=== PATIENT | male | born 1980 | race Two or more races ===

== ENCOUNTER 2019-10-03 20:55 | Emergency (ER) | payer OTHER ==
[~2019-10-03] VITALS: Ht 172.7 cm; Wt 65.8 kg
--- NOTE | 2019-10-03 21:36 | NUR ---
An READ PA-C IS AT THE BEDSIDE EVALUATING THE PT.
[2019-10-03] MEDS ORDERED: CEPHALEXIN MONOHYDRATE 500 MG CAPSULE PO ONE ×2 (21:54→22:00)
[2019-10-03] MEDS ORDERED: IBUPROFEN 600 MG TABLET PO ONE ×2 (21:55→22:00)
[2019-10-03 22:01] VITALS: BP 126/80
== END 2019-10-03 22:02 | disposition home or self-care (01) ==
LOC: ER 20:55
DX: L03.116 Cellulitis of left lower limb (principal); B35.1 Tinea unguium; F17.200 Nicotine dependence, unspecified, uncomplicated

== ENCOUNTER 2020-11-06 15:00 | Emergency (ER) | payer OTHER ==
[~2020-11-06] VITALS: Ht 170.2 cm; Wt 70.3 kg
[2020-11-06 15:09] VITALS: BP 130/85
[2020-11-06] MEDS ORDERED: KETOROLAC TROMETHAMINE INJ 30 MG/ML VIAL ONE (15:30)
[2020-11-06] MEDS: KETOROLAC TROMETHAMINE INJ 30 MG/ML VIAL IM ONE (15:35)
[2020-11-06] MEDS ORDERED: [UNRECOGNIZED DRUG - CODE] MC (15:48)
[2020-11-06] MEDS ORDERED: IBUP-1957 PO (15:48)
--- NOTE | 2020-11-06 15:59 | NUR ---
Patient discharged to home in stable condition. Written and verbal after care instructions given. Patient verbalizes understanding of instruction.
== END 2020-11-06 15:58 | disposition home or self-care (01) ==
LOC: ER 15:07
DX: G56.02 Carpal tunnel syndrome, left upper limb (principal); F10.10 Alcohol abuse, uncomplicated; F17.200 Nicotine dependence, unspecified, uncomplicated; Y90.9 Presence of alcohol in blood, level not specified; Z79.899 Other long term (current) drug therapy
CPT/HCPCS: 29125; 73130; 96372; 99283; J1885